=== PATIENT | female | born 1955 | race African-American/Black ===

== ENCOUNTER 2017-07-31 15:03 | Inpatient (IN) | payer OTHER ==
[~2017-07-31] VITALS: Ht 154.9 cm; Wt 69.2 kg
--- NOTE | ~2017-07-31 | D ---
[facility] [place] [place] [address] DISCHARGE SUMMARY Name: JAZLYN ALICEA Room #: 361-P [facility] IN M.R.#: [id number] Admission: 07/31/17 Attend Phys: Fátima Bhatti Discharge: 08/05/17 Date of : 57 Report #: [id number] THIS REPORT FOR: //name// CC: Francisco Tomlinson DATE OF SERVICE: 08/05/2017 ASSESSMENT: 1. Syncopal episode. 2. Hypotension. 3. Acute right lateral malleolus fracture. 4. Leukocytosis. 5. Diabetes type 2. 6. Chronic obstructive pulmonary disease. 7. Hypertension. 8. Bradycardia. 9. Acute prerenal azotemia. HOSPITAL COURSE: The patient was admitted from to the hospital after suffering a syncopal episode in the office where she was noted to be hypotensive, bradycardic and slightly hypoxic. Blood pressure at the time of presentation to the ER was 72/38 with a heart rate of 51, BUN was 33 with a creatinine of 1.3 and white count of 20,000. She was admitted for evaluation of sepsis or infectious process or cardiac process. Medications were held initially. All cultures were obtained and negative including influenza and blood cultures. Urinalysis was negative in ER and a chest x-ray did not show any pneumonia. X-ray of the ankle revealed the acute right lateral malleolus fracture. She was treated with empiric antibiotics for approximately 48 hours and once initial cultures were negative, those were discontinued. Orthopedics assessed her and placed her in a Cam boot. She had DVT prophylaxis. Gradually, her blood pressure jam and medicines were reinitiated. Blood sugars were variable and insulin was adjusted accordingly. PHYSICAL EXAMINATION: On the day of discharge: GENERAL: She was awake and alert. VITAL SIGNS: Stable. LUNGS: Clear. HEART: Regular. ABDOMEN: Soft, normoactive bowel sounds. EXTREMITIES: No edema. DISPOSITION: To be transferred to [facility] [address] [place] [address] DISCHARGE SUMMARY Name: JAZLYN ALICEA Room #: 361[facility].#: [id number] Admission: 07/31/17 Attend Phys: Fátima Bhatti Discharge: 08/05/17 Date of : 57 Report #: [id number] with diabetic diet, activity as tolerated, and PT/OT. I signed her transfer medication list and will follow her there. <ELECTRONICALLY SIGNED> By: Calin Tomlinson MD 08/11/17 0948 1332 1403 Calin Tomlinson MD /nt
--- NOTE | ~2017-07-31 | EKG ---
[address] [place] [employer] [place] [address] ELECTROCARDIOGRAM REPORT Name: JAZLYN ALICEA Room #: 361-P ADM IN M.R.#: [id number] Admission: 07/31/17 Attend Phys: Fátima Bhatti Discharge: Date of : 57 Report #: [id number] THIS REPORT FOR: //name// [facility] ED Test Date: 2017-07-31 Test Time: 15:23:44 Pat Name: JAZLYN ALICEA Department: Room: [facility] Gender: F Psychiatrist: RAMON : 1955 Requested By: Kal White Order Number: [id number] MD: Sean Oviedo Measurements Intervals [place] Rate: 50 P: 65 HI: 123 QRS: 67 QRSD: 87 T: 46 QT: 535 QTc: 488 Interpretive Statements Sinus rhythm Borderline prolonged QT interval Compared to ECG 01/31/2015 20:19:35 Sinus tachycardia no longer present Electronically Signed On 08-01-2017 13:01:24 COPYRIGHT EXPERT by Sean Oviedo [email or web address] <ELECTRONICALLY SIGNED> By: Sean Oviedo MD, [facility] 08/01/17 1301 1523 1523 Sean Oviedo MD, [facility] /EPI
--- NOTE | ~2017-07-31 | H ---
[facility] [address] [place] [address] HISTORY AND PHYSICAL Name: JAZLYN ALICEA Room #: 361-P [facility] IN M.R.#: [id number] Admission: 07/31/17 Attend Phys: Fátima Bhatti Discharge: 08/05/17 Date of : 57 Report #: [id number] THIS REPORT FOR: //name// CC: Francisco Tomlinson DATE OF SERVICE: 07/31/2017 HISTORY OF PRESENT ILLNESS: This is a 61-year-old female with recent syncopal episode at the office. This patient has had a recent left hip surgery. Also, she has a fractured right ankle apparently, came to the office for a routine checkup after had been at the therapy when she had a syncopal event when standing on the scale. She was brought to the Emergency Room and was really not able to give me any history. She was lethargic in the sense that she would fall asleep during my conversation, but would wake up and answer simple questions. PAST MEDICAL HISTORY: Shows COPD. She has diabetes with insulin dependence. She has benign essential hypertension, gastroparesis, degenerative arthritis, peripheral neuropathy. She currently has a thyroid nodule. She has sciatica on the right side from lumbar degenerative disk disease and apparently avascular necrosis of the left hip. She has had treated hepatitis C at the [facility]. She also had biopsy of the thyroid nodule, which was negative. She had a previous history of pulmonary embolism about 4 years ago. MEDICATION LIST: Includes omeprazole 40 mg daily, Levemir 80 units twice daily, 15 units of NovoLog daily, ProAir every 4 hours as needed, Flonase 2 sprays in each nostril daily, Lyrica 75 mg twice daily, amlodipine 5 mg daily, alprazolam 0.25 mg twice daily as needed, hydrocodone 10/325 every 4 hours as needed, lactulose for constipation, Humalog 15 units 3 times a day before meals, losartan 100 mg daily, furosemide 20 mg daily, gabapentin 300 mg 4 times a day, sertraline 50 mg daily, Breo Ellipta 1 puff daily, oxygen at 2 liters continuously, aerosolized DuoNeb every 6 hours and atorvastatin 10 mg daily. PAST SURGICAL HISTORY: She has had a previous splenectomy, cholecystectomy and left hip replacement. SOCIAL HISTORY: She was recently a smoker. REVIEW OF SYSTEMS: At this point, was unreliable due to her lethargy. PHYSICAL EXAMINATION: GENERAL: Showed the patient in the Emergency Room. She was in no distress, but she clearly was sedated and would fall asleep easily during the conversation. INITIAL VITAL SIGNS: Showed blood pressure of 70 systolic, but this has improved with fluid resuscitation. HEENT: Otherwise negative. [address] [address] HISTORY AND PHYSICAL Name: JAZLYN ALICEA Room #: 361-P DIS IN M.R.#: [id number] Admission: 07/31/17 Attend Phys: Fátima Bhatti Discharge: 08/05/17 Date of : 57 Report #: [id number] NECK: Supple without thyromegaly or adenopathy. CHEST: Clear. CARDIOVASCULAR: Shows a regular rate and rhythm without murmur. ABDOMEN: Soft and nontender. Bowel sounds were present. It was nondistended. EXTREMITIES: No cyanosis, clubbing or edema. NEUROLOGIC: Showed everything from a motor perspective was functional. She just was falling asleep easily during my interview. LABORATORY PARAMETERS: Showed a creatinine of 1.7. White count of 20,000 and microcytic indices for her hemoglobin. ASSESSMENT: 1. This is a 61-year-old female with change in mental status and syncope that could well be infection related, but I wonder if somehow it is medication related, and seems unlikely that this is a vascular event. Her electrolyte status was stable. Oxygenation status was stable. 2. Diabetes. 3. Recent ankle fracture, right. 4. Previous left hip replacement. PLAN: Minimize meds. Start IV Zosyn, IV fluids in the form of normal saline, and hopefully, within 12 hours, she will improve and we can then advance her diet and increase her activity. <ELECTRONICALLY SIGNED> By: Francisco Hernandez MD 08/18/17 1245 0836 0852 Francisco Hernandez MD /nt
--- NOTE | ~2017-07-31 | HC ---
[facility] [address] [place] [address] CONSULTATION Name: JAZLYN ALICEA Room #: 361-P [facility] IN M.R.#: [id number] Admission: 07/31/17 Attend Phys: Fátima Bhatti Discharge: 08/05/17 Date of : 57 Report #: [id number] THIS REPORT FOR: //name// CC: Francisco Tomlinson DATE OF SERVICE: 08/04/2017 HISTORY OF PRESENT ILLNESS: The patient is a 61-year-old -[place] female admitted with a syncopal episode while at her physician's office as well as new onset of pain involving the right ankle. She was admitted to [facility]. Workup reveals a nondisplaced lateral malleolar intra-articular fracture. She is currently toe touch weightbearing and I see that Orthopedics has been consulted. CT of the head showed moderate chronic atrophy. The patient is actually nonweightbearing on that right lower extremity. We are seeing her in rehabilitation medicine consultation. PAST MEDICAL HISTORY: Includes COPD, insulin-dependent diabetes mellitus, hypertension, gastroparesis, peripheral neuropathy, avascular necrosis of the left hip, hepatitis C, pulmonary embolism 4 years ago. She has had a prior left total hip replacement. MEDICATIONS: Please see the full medication listing. SOCIAL HISTORY: Includes previous splenectomy, cholecystectomy, left hip replacement. SOCIAL HISTORY: Lives in an apartment alone. No steps, used a walker versus wheelchair premorbidly. ALLERGIES: No known drug intolerances. FAMILY HISTORY: Noncontributory. REVIEW OF SYSTEMS: No current complaints of chest pain, shortness of breath or abdominal discomfort. She has the right ankle pain as expected. PHYSICAL EXAMINATION: GENERAL: A 61-year-old -[place] female in no obvious distress. She is of slender build. VITAL SIGNS: Her temperature 97.7, pulse 76, respirations 18, blood pressure 116/87. NEUROLOGIC: Alert, unkempt, pleasant female. Facies appeared symmetric. She appears a bit tangential, but will follow basic 1 step commands. Facies are symmetric. Functional range of motion of both upper extremities. Strength is grade 4/5. DTRs are trace to 1. In her lower extremities, her right ankle was [facility] [address] [place] [address] CONSULTATION Name: JAZLYN ALICEA Room #: 361[facility] IN M.R.#: [id number] Admission: 07/31/17 Attend Phys: Fátima Bhatti Discharge: 08/05/17 Date of : 57 Report #: [id number] dressed with Trung wrap. She can wiggle her toes. I did not examine the ankle. Left lower extremity, no focal calf swelling, functional range of motion with strength grade 4-/5. Tone is intact. She is currently mod assist with sit to stand transfers. She is unable to try to hop on the left lower extremity with the walker. ASSESSMENT: A 61-year-old -[place] female with the following problem list: 1. Right lateral nondisplaced intra-articular malleolar fracture, nonweightbearing. 2. Syncopal episode. 3. Chronic obstructive pulmonary disease. 4. Diabetes mellitus type 2. 5. Hypertension. PLAN: Note that Orthopedics is consulted. I agree that a assisted facility stay would appear to be most appropriate as she further medically stabilizes. <ELECTRONICALLY SIGNED> By: Calin Hancock MD 08/06/17 1124 1524 1949 Calin Hancock MD /[facility]
[~2017-07-31 15:03] MED LIST: ADULT LOW DOSE81 MG PO; ADVAIR 250-501 EACH IH; AMBIEN 10 MG TA10 MG PO; AMITRIPTYLINE H25 M2 PO; ANASPAZ0.125 MG PO; ARTHRITIS MED; ASPIRIN81 M2 PO; AZITHROMYCIN 2250 MG PO; BACLOFEN 10MG T10 MG PO; CENTRUM SILVER1 EAC4 PO; COUMADIN 3 MG TA3 M1 PO; CYMBALTA30 MG PO; DESYREL50 MG PO; ENDOCET 5-3251 EACH PO; FENOFIBRATE134 MG PO; FLONASE 0.05%50 MCG NASAL; GABAPENTIN 100100 MG PO; GABAPENTIN PO; GABAPENTIN100 MG PO; GEMFIBROZIL 60600 M1 PO; GENERLAC10 GM/15 M PO; HARVONI 90-4001 EACH PO; HYDROCODON-ACE1 EA11 PO; HYDROCODON-ACE1 EAC5 PO; HYDROCODON-ACE1 EAC7 PO; HYDROXYZINE HCL50 MG PO; IBUPROFEN 600600 M1 PO; LACTULOSE PO; LANTUS SC; LANTUS100 UNIT/M SUBQ; LEVAQUIN 500 M500 M2 PO; LEVEMIR SUBQ; LEVOFLOXACIN250 MG PO; LIBRIUM10 MG PO; LIORESAL 10 MG10 MG PO; LISINOPRIL PO; LISINOPRIL5 MG PO; LYRICA 75 MG CA75 MG PO; MACROBID 100 M100 M1 PO; METHADONE PO; METHOCARBAMOL500 M1 PO; MUCINEX D TABL1 EAC1 PO; NEURONTIN 300300 M1 PO; NEURONTIN600 MG PO; NIACIN 500 MG500 M1 PO; NICOTINE TRANSD21 M1 TD; NORCO 10-325 T1 EACH PO; NORCO 5-325 TA1 EACH PO; NORCO 7.5-3251 EACH PO; NORVASC 5 MG TAB5 MG PO; NOVOLOG SQ; NOVOLOG100 UNIT/1 SUBQ; PERCOCET 5-3251 EACH PO; PHENAZOPYRIDIN200 M2 PO; PREDNISONE 10 M10 MG PO; PRILOSEC 20 MG20 MG PO; PROAIR HFA8.5 GM IH; PROAIR HFA8.5 GM INH; REGLAN 5 MG TAB5 M1 PO; REGLAN 5 MG TAB5 MG PO; SIMVASTATIN40 MG PO; SPIRIVA INH; TEGRETOL XR100 MG PO; VICODIN HP 10-1 EAC1 PO; VISTARIL 25 MG25 M1 PO; VISTARIL50 MG PO; VITAMIN D 5050000 I1 PO; VOLTAREN GEL 1100 G1 TOP; XANAX 0.5 MG0.5 MG PO; XANAX1 MG PO; ZOFRAN ODT4 MG PO; ZPAK; lidocaine ointment TOP
[2017-07-31 15:05] VITALS: BP 72/38
[2017-07-31 15:57] LABS: HEMATOCRIT 35.9 % (37.0-47.0); HEMOGLOBIN 11.4 gm/dL (12.0-15.0); MCH 23.7 pg (26.0-34.0); MCHC 31.9 g/dL (28.0-37.0); MCV 74.2 fL (80.0-100.0); PLATELET COUNT 484 thou/uL (150-400); RBC 4.83 mil/uL (4.20-5.00); RDW 16.8 % (10.5-14.5); WBC 20.7 thou/uL (4.0-11.0)
[2017-07-31 16:05] LABS: ANION GAP 5 mmol/L (7-16); BUN 38 mg/dL (7-18); CALCIUM 8.7 mg/dL (8.5-10.1); CHLORIDE 101 mmol/L (98-107); CO2 28 mmol/L (21-32); CREATININE 1.7 mg/dL (0.6-1.0); GLUCOSE 113 mg/dL (74-106); POTASSIUM 3.8 mmol/L (3.5-5.1); SODIUM 134 mmol/L (136-145)
[2017-07-31 16:13] LABS: ALBUMIN 3.4 g/dL (3.4-5.0); SGOT 31 U/L (15-37); SGPT 43 U/L (30-65); TOTAL BILIRUBIN 0.2 mg/dL (<0.1-1.0); TROPONIN-I < 0.04 ng/mL (<0.06)
[2017-07-31 16:32] LABS: ABSOLUTE NEUTROPHILS 8.1 thou/uL (1.4-8.2)
[2017-07-31 16:34] LABS: ANISOCYTOSIS 2+; HYPOCHROMASIA 1+; MICROCYTES 1+; SCHISTOCYTES OCCASIONAL; TARGET CELLS 2+
[2017-07-31 17:08] LABS: URINE BILIRUBIN NEGATIVE (Negative); URINE BLOOD NEGATIVE (Negative); URINE CLARITY CLEAR; URINE COLOR YELLOW; URINE GLUCOSE-RANDOM* 3+ (Negative); URINE KETONES NEGATIVE (Negative); URINE LEUKOCYTES-REFLEX NEGATIVE (Negative); URINE NITRITE-REFLEX NEGATIVE (Negative); URINE PROTEIN (DIPSTICK) NEGATIVE (Negative); URINE UROBILINOGEN 0.2 E.U./dl (0.2-1.0)
[2017-07-31 19:46] VITALS: BP 142/63
[2017-07-31 20:46] VITALS: BP 141/72
[2017-07-31 23:46] VITALS: BP 130/63
[2017-08-01 03:29] VITALS: BP 134/61
[2017-08-01 04:38] LABS: CALCIUM 8.2 mg/dL (8.5-10.1); CREATININE 1.3 mg/dL (0.6-1.0); POTASSIUM 4.3 mmol/L (3.5-5.1)
[2017-08-01 04:39] LABS: % SATURATION 24 % (20-39); IRON 61 ug/dL (50-170); TIBC 250 ug/dL (250-450)
[2017-08-01 08:47] VITALS: BP 151/67
[2017-08-01 11:41] VITALS: BP 159/90
[2017-08-01 15:08] VITALS: BP 156/68
[2017-08-01 19:05] VITALS: BP 176/86
[2017-08-02 04:19] VITALS: BP 188/92
[2017-08-02 11:40] VITALS: BP 155/78
[2017-08-02 16:40] VITALS: BP 160/97
[2017-08-02 20:10] VITALS: BP 149/80
[2017-08-03 04:51] VITALS: BP 172/93
[2017-08-03 08:00] VITALS: BP 162/87
[2017-08-03 08:04] LABS: ABSOLUTE NEUTROPHILS 11.3 thou/uL (1.4-8.2); BASOPHILS 0.5 % (0.0-2.0); HEMATOCRIT 42.9 % (37.0-47.0); LYMPHOCYTES 32.9 % (24.0-44.0); MCH 23.6 pg (26.0-34.0); MCHC 32.2 g/dL (28.0-37.0); MCV 73.3 fL (80.0-100.0); MONOCYTES 6.6 % (1.0-8.0); PLATELET COUNT 521 thou/uL (150-400); RBC 5.85 mil/uL (4.20-5.00); RDW 16.7 % (10.5-14.5); WBC 19.5 thou/uL (4.0-11.0)
[2017-08-03 08:05] LABS: HEMOGLOBIN 13.8 gm/dL (12.0-15.0)
[2017-08-03 08:14] LABS: CALCIUM 9.9 mg/dL (8.5-10.1); CREATININE 0.9 mg/dL (0.6-1.0); POTASSIUM 4.1 mmol/L (3.5-5.1)
[2017-08-03 08:30] LABS: ANISOCYTOSIS 1+; HYPOCHROMASIA SLIGHT; MICROCYTES 1+
[2017-08-03 12:00] VITALS: BP 182/97
[2017-08-03 16:00] VITALS: BP 157/102
[2017-08-03 19:57] VITALS: BP 188/98
[2017-08-04 06:15] VITALS: BP 175/105
[2017-08-04 07:52] LABS: HEMATOCRIT 41.5 % (37.0-47.0); HEMOGLOBIN 13.4 gm/dL (12.0-15.0); MCH 23.7 pg (26.0-34.0); MCHC 32.4 g/dL (28.0-37.0); MCV 73.1 fL (80.0-100.0); RBC 5.68 mil/uL (4.20-5.00); RDW 15.8 % (10.5-14.5); WBC 19.8 thou/uL (4.0-11.0)
[2017-08-04 08:00] VITALS: BP 170/104
[2017-08-04 08:06] LABS: CALCIUM 9.6 mg/dL (8.5-10.1); CREATININE 1.1 mg/dL (0.6-1.0)
[2017-08-04 12:00] VITALS: BP 168/87
[2017-08-04 16:00] VITALS: BP 155/81
[2017-08-04 19:30] VITALS: BP 158/77
[2017-08-05 04:10] VITALS: BP 169/94
[2017-08-05 08:19] VITALS: BP 152/87
[2017-08-05 11:41] VITALS: BP 134/86
[2017-08-05] MEDS ORDERED: DUONEB 2.5-0.5 M3 ML INH (13:12)
[2017-08-05] MEDS ORDERED: AMLODIPINE BESYL5 M1 PO (13:13)
[2017-08-05] MEDS ORDERED: NORCO 7.5-3251 EACH PO (13:13)
[2017-08-05] MEDS ORDERED: SERTRALINE HCL50 MG PO (13:13)
[2017-08-05] MEDS ORDERED: CARVEDILOL25 MG PO (13:13)
[2017-08-05] MEDS ORDERED: COZAAR100 MG PO (13:13)
[2017-08-05] MEDS ORDERED: NOVOLOG100 UNIT/1 SUBQ (13:14)
[2017-08-05] MEDS ORDERED: LANTUS100 UNIT/M SUBQ (13:14)
[2017-08-05] MEDS ORDERED: ASPIRIN81 M2 PO (13:15)
[2017-08-05 15:39] VITALS: BP 167/85
== END 2017-08-05 18:41 | DRG 562 ==
LOC: ER 15:03 → 3W 17:30 → EROBS 17:30 → 3W 20:33
PROVIDERS: Internal Medicine; Internal Medicine Geriatric Medicine; Physician Assistant
PROC: 2W3RX1Z Immobilization of Left Lower Leg using Splint (ICD-10-PCS; principal; 2017-07-31)
DX: S82.61XA Displaced fracture of lateral malleolus of right fibula, initial encounter for closed fracture (principal); G93.41 Metabolic encephalopathy; I10 Essential (primary) hypertension; E11.40 Type 2 diabetes mellitus with diabetic neuropathy, unspecified; K59.00 Constipation, unspecified; F41.9 Anxiety disorder, unspecified; F32.9 Major depressive disorder, single episode, unspecified; G89.4 Chronic pain syndrome; J44.9 Chronic obstructive pulmonary disease, unspecified; K21.9 Gastro-esophageal reflux disease without esophagitis; Z96.642 Presence of left artificial hip joint; R00.1 Bradycardia, unspecified; M51.36 Other intervertebral disc degeneration, lumbar region; I95.9 Hypotension, unspecified; Z60.2 Problems related to living alone; D72.829 Elevated white blood cell count, unspecified; R79.89 Other specified abnormal findings of blood chemistry; Z86.711 Personal history of pulmonary embolism; Z86.19 Personal history of other infectious and parasitic diseases; Z90.49 Acquired absence of other specified parts of digestive tract; Z90.81 Acquired absence of spleen; Z87.442 Personal history of urinary calculi; Z88.8 Allergy status to other drugs, medicaments and biological substances; Z79.4 Long term (current) use of insulin; Z79.899 Other long term (current) drug therapy; W18.39XA Other fall on same level, initial encounter; Y93.89 Activity, other specified; Y92.89 Other specified places as the place of occurrence of the external cause; Y99.8 Other external cause status
CPT/HCPCS: 10879

== ENCOUNTER → 2017-10-13 | Outpatient (CLI) | payer OTHER ==
[~2017-10-13] MED LIST changes: +AMLODIPINE BESYL5 M1 PO; +CARVEDILOL25 MG PO; +COZAAR100 MG PO; +DUONEB 2.5-0.5 M3 ML INH; +SERTRALINE HCL50 MG PO
== END ==
LOC: CAT 06:38
DX: E04.1 Nontoxic single thyroid nodule (principal); M47.892 Other spondylosis, cervical region; J44.9 Chronic obstructive pulmonary disease, unspecified; J98.4 Other disorders of lung

== ENCOUNTER → 2019-06-08 | Outpatient (CLI) | payer OTHER | LOC: ULTRA 11:53 | DX: M79.89 Other specified soft tissue disorders (principal); M79.605 Pain in left leg ==